=== PATIENT | female | born 1965 | race Hispanic/Latino ===

== ENCOUNTER 2018-05-02 07:22 | Day surgery (SDC) | payer MEDICAID ==
[2018-05-02 07:40] VITALS: BMI 21.2
[2018-05-02] MEDS ORDERED: Propofol 10 mg/ml Inj (20 ML) ONE (11:09)
[2018-05-02] MEDS ORDERED: Midazolam 2 MG/2 ML VIAL ONE (11:09)
[2018-05-02] MEDS ORDERED: HYDROmorphone 0.5 mg/0.5 ml ISec ONE ×2 (12:03→13:05)
[2018-05-02] MEDS: HYDROmorphone 0.5 mg/0.5 ml ISec IVP PRN ×2 (12:05→13:03)
[2018-05-02] MEDS ORDERED: Lactated Ringer's 1,000 ML IV SCH (12:15)
--- NOTE | 2018-05-02 13:04 | PCM.SURG1 ---
Surgeon's Initial Post Op Note - Surgeon's Notes Surgeon: dr middleton Mortgage Specialist: none Type of Anesthesia: General LMA Anesthesia Administered By: dr [place] Pre-Operative Diagnosis: displaced iud Operative Findings: see the op reprt Post-Operative Diagnosis: same Operation Performed: hysterscopic iud displaced removal and d&c Specimen/Specimens Removed: ecc and emc. iud Estimated Blood Loss: EBL {In ML}: 20 Blood Products Given: N/A Drains Used: No Drains Post-Op Condition: Good Date of Surgery/Procedure: 05/02/18 Time of Surgery/Procedure: 13:00
[2018-05-02] MEDS ORDERED: Lactated Ringer's 1,000 ML IV ONE (13:50)
[2018-05-02 15:03] VITALS: BP 103/58; PULSE 82; RESP 18; TEMP 98.2; O2SAT 99
--- NOTE | 2018-05-03 07:21 | OP ---
PROCEDURE DATE: 05/02/2018 PREOPERATIVE DIAGNOSIS: A 53-year-old 3, para 3 with displaced intrauterine device. POSTOPERATIVE DIAGNOSIS: A 53-year-old 3, para 3 with displaced intrauterine device. SURGEON: Oren Thurston MD ANESTHESIA: General anesthesia. ANESTHESIOLOGIST: Davin Dubon MD COMPLICATIONS: None. PROCEDURES PERFORMED: Hysteroscopy, removal of the intrauterine device, and dilatation and curettage. DESCRIPTION OF PROCEDURE: The patient was brought to the operating room and placed on the table where general anesthesia was given. Once the anesthesia was given, the patient was prepped and draped in the normal sterile fashion. Examination under general anesthesia was performed. The uterus the lower uterine segment was stuck to the operative hysteroscope . The hook was placed, and the IUD was pulled out. It was pulled out intact. After that, we went into , and then the D and C was done. ECC and EMC were sent to the Pathology. After this, there was part of the body was not bleeding. . The patient tolerated the procedure well. Lap, sponge, and instrument counts were correct x2. She will follow up in the office in two weeks. Oren Thurston MD
--- NOTE | 2018-05-03 14:23 | CARD ---
APPROVED REPORT Date of service: 05/02/2018 EKG Measurement Heart [id number] <Conclusion> Normal sinus rhythm ST elevation, probably due to early repolarization Borderline ECG
== END 2018-05-02 14:55 | disposition home or self-care (01) ==
LOC: C.SDS 07:22
PROVIDERS: ATTEND Obstetrics & Gynecology
DX: T83.32XA Displacement of intrauterine contraceptive device, initial encounter (principal); Y76.2 Prosthetic and other implants, materials and accessory obstetric and gynecological devices associated with adverse incidents
CPT/HCPCS: 58301; 58558; 88300; 88305; 93005; J1170; J2250; J2704; J3010; J7120